=== PATIENT | male | born 1960 | race Caucasian/White ===

== ENCOUNTER 2020-04-02 07:26 | Outpatient (RCR) | payer OTHER, SELFPAY ==
--- NOTE | 2020-04-02 08:41 | PTOPEVAL ---
PHYSICAL THERAPY EVALUATION AND PLAN OF CARE Thank you for referring Nadeem Antoine to [facility].? The patient is scheduled to be seen for therapy? 2x/week for 4 weeks. Please review, sign, date and return this plan of care DESEAN. I agree with and certify that the following plan of care is medically necessary. Referring Physician Date Attending Provider: Trever Harley, MD Evaluation Diagnosis low back pain Onset chronic Cause insidious Subjective Information States that is started when he Query Text:As Reported By Patient/ was in the [employer] and over Family time it has worsened. States that he has been told his dics are compressed and vertebrae are out of alignment. States that he is limited in his activities because of back pain. Standing, sitting, walking for too long (> 30minutes). Takes hydrocodone - states it lasts a day or 2. Has ice, heat, lidocaine patches, and has a back support he will use to walk the dogs or go grocery shopping, etc. Methocarbomal, meloxicam Self Report Pain Assessment Lower Back Reported Pain Level 7 Pain Description Aching,Sharp,Spasms,Tender on Palpation,Tightness Radicular Pain Location right lower extremity Pain Frequency Chronic Pain Relief Interventions Used By Heat,Ice,Medication,Sitting Patient Lumbar ROM Lumbar Flexion (0-90) 20 Query Text:Active in Degrees Lumbar Extension (0-40) 4 Query Text:Active in Degrees Lateral Rotation Right (0-45) 15 Query Text:Active in Degrees Lateral Rotation Left (0-45) 15 Query Text:Active in Degrees Lumbar Comments nat's sign, painful all directions; Lower Extremity Range of Motion General Lower Extremity Range of Motion Gross Lower Extremity Range of Motion right hip ROM limited - not Comments measured, very limited IR compared to left side Lower Extremity Muscle Strength Testing Hip Strength Left Hip Flexion Strength 4+ Good + Hip Extension Strength 3+ Fair + Hip Abduction Strength 3+ Fair + Right Hip Flexion Strength 4 Good Hip Abduction Strength 3- Fair - Knee Strength Bilateral Knee Flexion Strengt
--- NOTE | 2020-05-15 08:59 | PCPTNOTE ---
PHYSICAL THERAPY DISCHARGE NOTE Attending Provider: Trever Harley, Patient:Nadeem Antoine Date of :1960 Patient has not returned for any further treatments since 04/02/2020, therefore he will be discharged at this time. Patient?s initial visit was on 04/02/2020 and he did not schedule further visits despite multiple attempts to reach patient to schedule appointments. The goals have not been assessed. Thank you for referring this patient to [facility]. Please review, sign, date and return this discharge summary DESEAN. I have been updated about the patient's current status and I agree with discharge from the above service at this time. Referring Physician Date
== END 2020-05-15 15:06 | disposition home or self-care (01) ==
LOC: ANHPT 07:26
PROVIDERS: PCP Internal Medicine; Visit Provider Nurse Practitioner Family
DX: M54.5 Low back pain (principal)
CPT/HCPCS: 97162